=== PATIENT | male | born 2005 | race Two or more races ===

== ENCOUNTER 2025-02-28 18:00 | Emergency (ER) | payer SELFPAY ==
[~2025-02-28] VITALS: Ht 172.7 cm; Wt 56.4 kg
[2025-02-28 18:06] VITALS: TEMP 98.8
[2025-02-28] MEDS: ONDANSETRON HCL 4 MG/2 ML VIAL IM ONE (19:49)
[2025-02-28] MEDS: IBUPROFEN 600 MG TABLET PO ONE (19:50)
[2025-02-28] MEDS: MORPHINE SULFATE 4 MG/ML SYRINGE IM ONE (19:50)
[2025-02-28] MEDS: METHOCARBAMOL 500 MG TABLET PO ONE (19:50)
[2025-02-28] MEDS ORDERED: IBUP-1554 PO (20:46)
[2025-02-28] MEDS ORDERED: HYDR-4062 PO (20:46)
[2025-02-28] MEDS ORDERED: METH-659 PO (20:46)
[2025-02-28 21:00] VITALS: BP 116/66; PULSE 71; RESP 18; O2SAT 96
== END 2025-02-28 21:20 | disposition home or self-care (01) ==
LOC: EMS 18:00
DX: M54.50 Low back pain, unspecified (principal); M08.00 Unspecified juvenile rheumatoid arthritis of unspecified site; J45.909 Unspecified asthma, uncomplicated
CPT/HCPCS: 99284; 96372; J2270; J2405